=== PATIENT | male | born 1970 | race Caucasian/White ===

== ENCOUNTER → 2023-01-03 13:57 | Outpatient (BNVA) | payer MEDICARE, SELFPAY | PROVIDERS: PCP Internal Medicine; Visit Provider Nurse Practitioner Psychiatric/Mental Health | DX: F10.20 Alcohol dependence, uncomplicated (principal); F14.10 Cocaine abuse, uncomplicated; Z79.899 Other long term (current) drug therapy | CPT/HCPCS: 99212 ==

== ENCOUNTER 2023-01-05 08:15 | Outpatient (RCR) | payer MEDICARE, SELFPAY ==
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
[2022-12-23 11:18] VITALS: BMI 34.2
[2022-12-23 12:13] VITALS: BP 126/78; PULSE 80; TEMP 36.9
--- NOTE | 2022-12-23 12:46 | PC.ADMIT ---
Patient is a 52 year old male who was referred to PHP from [facility] program as patient struggling with ETOH use, reports cocaine use, and has a dx of Bipolar disorder most recent episode is depressed. Patient has a 3 year old daughter and there is DCF involvement. Patient also reports his fiance' is in a program as well. Patient reportedly went to a sober living facility after detox and was there for 2 days before returning home. Patient identifies his greatest source of stress is, my addiction . He wants to continue to work on sobriety and his mental health issues. See Integrative Assessment for more information. Patient is alert and oriented x4. Calm and cooperative. Presented with depressed mood, anxious affect. Denied SI or thoughts to harm himself. Appears motivated to work on sobriety. Reports attending AA. Denied cravings for substances. Medications reconciled with patient and [facility] paperwork. Patient plans on going to the pharmacy today to peanut picker his prescription of Naltrexone and purchasing folic acid.
[2022-12-23 12:55] LABS: Amphetamine Screen Urine Not Detected (Not Detect); Barbiturates, Urine Not Detected (Not Detect); Benzodiazepines Screen Urine Not Detected (Not Detect); Cannabinoid Screen Urine Not Detected (Not Detect); Cocaine Screen Urine Not Detected (Not Detect); Fentanyl, urine Not Detected (Not Detect); Opiate Screen Urine Not Detected (Not Detect); Phencyclidine Screen Urine Not Detected (Not Detect)
--- NOTE | 2022-12-30 08:03 | HO.PHP ---
The clients case was opened in treatment team
--- NOTE | 2022-12-30 11:25 | HO.PHPPROGNO ---
Subjective Subjective Date of Service: 12/30/22 Reason For Visit: anxiety,depression,bipolar,AUD Medical Problems Affecting Mental Status: No Interim History: To mood as ?good ?. Taking Topamax, tolerating well. Using p.r.n. clonidine 3-4 times within past week. Taking naltrexone, remains abstinent from alcohol at this time. Would like to switch over to Vivitrol. Reports that he needs a therapist and provider referral. No SI/HI, no safety concerns. Medication Compliance: Yes Side effects from medications: No Attending Groups: Yes Review of Systems Acute medical concerns: No Medical Review of Systems: unchanged Review of Systems Review of Systems Yes all other systems are reviewed and are negative Constitutional: Reports no additional constitutional complaints Mental Status Exam Mental Status Exam Narrative: Well-developed, well-nourished, in NAD. General appearance, well groomed, appropriately dressed for season and age. Musculoskeletal: No involuntary movements noted, motor activity calm, posture within normal limits. Manner/behavior: Calm, cooperative. Speech: Fluent, unimpaired, normal rate volume and rhythm. Mood: good Affect: Mood congruent. Thought process/associations: Linear, goal directed. Thought content: Normal, future oriented. Delusions: None. Hallucinations: None. Suicidality/self destructive behavior: None. Homicidality/violence: none. Reliability: Good Judgment: Fair Insight: Fair MSK exam: Normal ambulation, no cogwheeling or rigidity noted. Diagnostics Vital Signs (24Hr): BMI result Body Mass Index 34.2 Assessment & Plan Assessment & Plan (1) Alcohol dependence, uncomplicated: Status: Acute Code(s): F10.20 - Alcohol dependence, uncomplicated Assessment and Plan: Remains abstinent from alcohol this time. Doing well with oral naltrexone. Discussed medication alternatives, including changing to injectable form of naltrexone, acamprosate, or trialing disulfiram. Discussed each medication, including side effects both benign and more serious, alternatives of treatment. He is interested in receiving Vivitrol. Continues to work on recovery program. Participating in substance use groups here. (2) Bipolar 1 disorder, depressed, moderate: Status: Acute Code(s): F31.32 - Bipolar disorder, current episode depressed, moderate Assessment and Plan: No mood lability year constriction noted. Reports that he feels his mood is stable. States he had taken Topamax in the past, and Latuda for mood stabilization. Discussed adding Latuda, he would prefer to wait at this time. Discussed increasing dose of Topamax at this time. He was in agreement. No SI, no safety concerns. (3) Generalized anxiety disorder: Status: Acute Code(s): F41.1 - Generalized anxiety disorder Assessment and Plan: Overall much less anxious, appears more at ease. Feels more comfortable in program, fully participating. (4) Cocaine use disorder: Status: Acute Code(s): F14.10 - Cocaine abuse, uncomplicated Assessment and Plan: No cocaine use, less cravings. Discussed use of Topamax to help with cravings, as well as mood stabilizer. Plan 1. Continue with current [facility] plan of care. 2. Increase Topamax to 50 mg daily. 3. Continue other medications as currently prescribed. 4. Follow-up as per protocol. Patient educated on: diagnosis, medication risk/benefits, substance abuse and therapeutic strategies Informed Consent: understands Reason for contiued partial hosp. stay Substantial Risk for: inability to function and rapid decompensation Certification I certify that partial hospital treatment is medically necessary due to the symptoms and problems resulting from the patient's mental illness and the failure to treat the patient at the partial hospital level of care would likely result in the patient requiring inpatient psychiatric care which could not be prevented at a less intensive level of care. Total time managing care of this patient today __20__ minutes. Discharge Plan Discharge Attending provider: Viktor Petty Medications: New naltrexone 50 mg tablet 50 mg PO DAILY Qty: 30 0RF topiramate 50 mg tablet 50 mg PO DAILY Qty: 14 0RF clonidine HCl 0.1 mg tablet 0.1 mg PO BID PRN (Reason: anxiety) Qty: 60 0RF Rx Instructions: Hold for systolic BP under 90, pulse under 60. Discontinued clonidine HCl 0.1 mg Tablet 0.1 mg PO BID No Action multivitamin Tablet 1 tab PO DAILY thiamine HCl (vitamin B1) 100 mg Tablet 100 mg PO DAILY omeprazole 20 mg Capsule,Delayed Release(Dr/Ec) 20 mg PO DAILY vitamin B complex [Super B Complex] Tablet 1 tab PO DAILY folic acid 1 mg Tablet 1 mg PO DAILY
--- NOTE | 2023-01-10 14:42 | HO.PHP ---
discharge info was faxed to [facility]
== END 2023-01-06 23:59 | disposition home or self-care (01) ==
LOC: HO.PHPA 08:15
PROVIDERS: Nurse Practitioner Psychiatric/Mental Health; Visit Provider Psychiatry & Neurology Psychiatry
DX: F31.32 Bipolar disorder, current episode depressed, moderate (principal); F41.1 Generalized anxiety disorder; F10.20 Alcohol dependence, uncomplicated; F14.10 Cocaine abuse, uncomplicated; Z79.899 Other long term (current) drug therapy
CPT/HCPCS: 80307; 90791; 90853

== ENCOUNTER → 2023-01-16 13:40 | Outpatient (BNVA) | payer MEDICARE, SELFPAY | PROVIDERS: PCP Internal Medicine; Visit Provider Nurse Practitioner Psychiatric/Mental Health | DX: F10.20 Alcohol dependence, uncomplicated (principal); F14.10 Cocaine abuse, uncomplicated; Z51.81 Encounter for therapeutic drug level monitoring; Z79.899 Other long term (current) drug therapy | CPT/HCPCS: 80305; 96372; 99212 ==

== ENCOUNTER → 2023-02-15 14:14 | Outpatient (BNVA) | payer MEDICARE, SELFPAY | PROVIDERS: PCP Internal Medicine; Visit Provider Nurse Practitioner Psychiatric/Mental Health | DX: F10.20 Alcohol dependence, uncomplicated (principal) | CPT/HCPCS: 96372; 99212 ==